=== PATIENT | male | born 1985 | race Two or more races ===

== ENCOUNTER 2022-05-25 07:37 | Emergency (ER) | payer SELFPAY ==
[~2022-05-25] VITALS: Ht 185.4 cm; Wt 93.0 kg
--- NOTE | 2022-05-25 07:40 | NUR ---
[id number], FOUND UNRESPONSIVE BY GIRLFRIEND S/P SMOKING FENTANYL NARCAN GIVEN INTRANASAL. PT AWAKE FRONT DESK REPRESENTATIVE. BG 193. PT IS A&OX3, DROWSY BUT EASY TO AROUSE. ATTACHED TO MONITOR, VITALS ARE WTIHIN NORMAL LMIITS, NO RESPIRATYORY DISTRESS NOTED, ON ROOM AIR. WARM ABLKNET PROVIDED FOR COMFORT. URINE AT BEDSIDE. AWAITING MD ORDERS.
--- NOTE | 2022-05-25 12:14 | NUR ---
PT AWAKE AND VERBALLY RESPONSIVE. STATES THAT HE IS FEELING BETTER AND THAT HE'S HOMELESS. LUNCH TRAY PROVIDED TO PT.
[2022-05-25] MEDS ORDERED: NALO4SPR BNOSTRILS (13:19)
--- NOTE | 2022-05-25 13:39 | NUR ---
IV removed. Catheter intact and site benign. Pressure and 4x4 applied to site. No bleeding noted.
--- NOTE | 2022-05-25 13:59 | NUR ---
Patient discharged to home/homeless stable condition. Written and verbal after care instructions given. Patient verbalizes understanding of instruction. Patient refused to sign homeless waiver and resources. TAP card provided to pt.
[2022-05-25 14:00] VITALS: BP 124/77
== END 2022-05-25 14:01 | disposition home or self-care (01) ==
LOC: ER 07:42
DX: T40.411A Poisoning by fentanyl or fentanyl analogs, accidental (unintentional), initial encounter (principal); I10 Essential (primary) hypertension; Y92.89 Other specified places as the place of occurrence of the external cause